=== PATIENT | female | born 1930 | race Caucasian/White ===

== ENCOUNTER 2017-11-24 00:33 | Emergency (ER) | payer MEDICARE, OTHER ==
[~2017-11-24] VITALS: Ht 152.4 cm; Wt 43.1 kg
[~2017-11-24 00:33] MED LIST: ACEBUTCAFT PO; ACET325 PO; ACET500 PO; AMBIEN; Acetaminophen325 M1 PO; Aldactone25 MG PO; BUME2 PO; CALC.25 PO; CEPH250A PO; Cipro500 MG PO; DOCU100 PO; DOXY100 PO; Desyrel50 MG PO; ERGO50000 PO; FURO100EL; Ferrex 150 For1 EACH PO; Ferus150 MG PO; HYDACE5 PO; LEVSOD75 PO; METO2.5 PO; MIDO2.5 PO; MIRT15 PO; MULVITMINF PO; Micro-K10 MEQ PO; Multivitamin1 EAC1 PO; NYST100TC TOP; Norco 5-325 Ta1 EACH PO; POTCHL10ER PO; POTCHL20ER; POTCHL20ER PO; Phospha 250 Ne250 MG PO; SERT25 PO; SPIR25 PO; SULTRIDS PO; Sulfamethoxazo1 EAC4 PO; VITB100 PO
== END 2017-11-24 04:00 | disposition home or self-care (01) ==
LOC: ER 00:33
DX: S01.01XA Laceration without foreign body of scalp, initial encounter (principal); S40.022A Contusion of left upper arm, initial encounter; Z88.0 Allergy status to penicillin; Z88.8 Allergy status to other drugs, medicaments and biological substances; Z88.1 Allergy status to other antibiotic agents; Z79.899 Other long term (current) drug therapy; F03.90 Unspecified dementia, unspecified severity, without behavioral disturbance, psychotic disturbance, mood disturbance, and anxiety; I10 Essential (primary) hypertension; W05.0XXA Fall from non-moving wheelchair, initial encounter
CPT/HCPCS: 12001; 73030; 73080; 99283

== ENCOUNTER → 2018-11-02 | Outpatient (CLI) | payer OTHER ==
[2018-11-02 12:58] LABS: Bilirubin, Urine Neg (Neg); Blood, Urine 2+ (Neg); Glucose Qualitative, Urine Neg (Neg); Ketones, Urine Neg (Neg); Leukocyte Esterase, Urine 3+ (Neg); Nitrite, Urine Neg (Neg); Protein, Urine 2+ (Neg); Urobilinogen, Urine NORM (Normal)
[2018-11-02 15:42] LABS: Appearance, Urine Hazy (Clear); Color, Urine Yellow (P-Yellow)
[2018-11-02 15:43] LABS: White Blood Cells, Urine TNTC /hpf (0-5)
[2018-11-02 15:44] LABS: Bacteria Many /hpf; Squamous Epithelial Cells Few /hpf (Few); Transitional Epithelial Cells Few /hpf (0-Rare)
== END | disposition home or self-care (01) ==
LOC: LAB 12:42 → LAB SHORT 12:42
DX: N39.0 Urinary tract infection, site not specified (principal)
CPT/HCPCS: 81001; 87077; 87086; 87186